=== PATIENT | female | born 1970 | race Caucasian/White ===

== ENCOUNTER 2018-01-31 10:29 | Day surgery (SDC) | payer BC ==
[2018-01-25 13:05] VITALS: BMI 30.5
[2018-01-31 10:57] VITALS: TEMP 98.1
[2018-01-31] MEDS ORDERED: PROPOFOL 20 ML ONE ×2 (11:00)
[2018-01-31] MEDS ORDERED: LIDOCAINE HCL/PF 2% SDV 5ML VIAL ONE (11:01)
[2018-01-31 13:17] VITALS: BP 100/60; PULSE 66
== END 2018-01-31 13:20 | disposition home or self-care (01) ==
LOC: FASU-ENDO 10:29
PROVIDERS: ATTEND Internal Medicine Gastroenterology
PROC: 0DJD8ZZ Inspection of Lower Intestinal Tract, Via Natural or Artificial Opening Endoscopic (ICD-10-PCS; principal; 2018-01-31 11:56)
DX: K59.00 Constipation, unspecified (principal); K64.8 Other hemorrhoids; Q43.8 Other specified congenital malformations of intestine
CPT/HCPCS: 84703